=== PATIENT | female | born 1950 | race Caucasian/White ===

== ENCOUNTER 2017-10-29 09:07 | Outpatient (CLI) | payer MEDICARE, BC ==
[2017-10-29 10:11] LABS: Hemoglobin 13.7 g/dL (12.0-16.0); Mean Corpuscular Hemoglobin 30.3 pg (27.0-31.0); Mean Corpuscular Volume 94.8 fL (78.0-98.0); Mean Platelet Volume 7.6 fL (7.4-10.4); Platelet Count 232 thou/uL (130-400); RBC Distribution Width 12.4 % (11.5-14.5); Red Blood Cell (RBC) Count 4.52 mill/uL (4.20-5.40); White Blood Cell (WBC) Count 9.3 thou/uL (4.8-10.8)
[2017-10-29 10:18] LABS: INR-International Normal Ratio 0.9; Prothrombin Time 12.4 SEC (12.0-14.7)
[2017-10-29 10:32] LABS: Anion Gap 13 mmol/L (10-20); BUN (Urea Nitrogen) 26 mg/dL (9.8-20.1); Calc. Creatinine Clearance 0 mL/min (70-130); Calcium 9.3 mg/dL (7.8-10.44); Carbon Dioxide 26 mmol/L (23-31); Chloride 106 mmol/L (98-107); Estimated GFR-MDRD Greater than 90; Glucose 90 mg/dL (80-115); Sodium 141 mmol/L (136-145)
[2017-10-29 10:34] LABS: Bilirubin Negative (Negative); Blood, Urine Negative (Negative); Clarity CLEAR (Clear); Glucose, Urine (Dipstick) Negative (Negative); Leukocyte Negative (Negative); Nitrite Negative (Negative); Protein, Urine (Dipstick) Negative (Neg-Trace); Specific Gravity, Urine 1.024 (1.002-1.036); Urobilinogen 0.2 mg/dL (0.2-1.0); pH, Urine 5.5 (5.0-9.0)
[2017-10-29 10:45] LABS: Bacteria/HPF None Seen HPF (None Seen); Hyaline Casts/LPF 0-3 HYALINE CAST LPF (0-3 Hyaline); Pathc Cast-AUWi Flag 0.72 (0-2.49)
--- NOTE | 2017-11-01 17:36 | EKG ---
Test Reason : Blood Pressure : / mmHG Vent. Rate : 069 BPM Atrial Rate : 069 BPM P-R Int : 156 ms QRS Dur : 080 ms QT Int : 382 ms P-R-T Axes : 019 015 014 degrees QTc Int : 409 ms Normal sinus rhythm Low voltage QRS Inferior infarct , age undetermined Abnormal ECG When compared with ECG of 01-MAY-1999 08:24, Inferior infarct is now Present Confirmed by JUAN JARVIS (2) on 11/01/2017 5:35:47 PM Referred By: DEJAN Confirmed By:JUAN JARVIS
== END 2017-10-29 09:08 | disposition home or self-care (01) ==
LOC: LABBT 09:07
PROVIDERS: ATTEND Orthopaedic Surgery
DX: Z01.818 Encounter for other preprocedural examination (principal)
CPT/HCPCS: 80048; 81001; 85027; 85610; 87081; 87086; 93005; 93010

== ENCOUNTER 2017-11-04 15:22 | Outpatient (CLI) | payer MEDICARE, BC | END 2017-11-04 15:23 | disposition home or self-care (01) | LOC: LABBT 15:22 | PROVIDERS: ATTEND Orthopaedic Surgery | DX: Z01.812 Encounter for preprocedural laboratory examination (principal); M17.11 Unilateral primary osteoarthritis, right knee | CPT/HCPCS: 86850; 86900; 86901 ==

== ENCOUNTER 2017-11-09 05:50 | Day surgery (SDC) | payer MEDICARE, BC ==
[2017-10-29 09:36] VITALS: BMI 34.2
--- NOTE | 2017-11-08 20:44 | HP ---
DATE OF ADMISSION: 11/09/2017 HISTORY OF PRESENT ILLNESS: The patient is a 66-year-old female with a long history of progressive d egenerative arthritis of both knees, right symptomatic more than left. She has had a recent injury. She has had progressive symptoms despite rest, restriction of activities, lifestyle adjustments, ant i-inflammatory medications, and previous cortisone injections. Pain is now interfering with day-to-d ay activities including walking, getting dressed, and sleeping. 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 This is not causing any significant clinical problems. She has had cervical cancer, and she has had a previous hysterectomy. She has also had neck surgery. She has a history of high chol esterol, anxiety, and Rivas's palsy. CURRENT MEDICATIONS: Include fish oil, multivitamins, naproxen, simvastatin, bupropion, estradiol, c alcium, tizanidine. ALLERGIES: She is allergic to PENICILLIN, which causes a rash. FAMILY HISTORY/SOCIAL HISTORY/REVIEW OF SYSTEMS: Otherwise unremarkable. PHYSICAL EXAMINATION: GENERAL: Reveals a healthy female. HEENT: Unremarkable. NECK: Supple. CHEST: Clear. HEART: Regular rate and rhythm. ABDOMEN: Soft, nontender. PELVIC/RECTAL/BREAST: Exams are deferred. EXTREMITIES: Pertinent findings relate to her knees. There is a slight puffiness bilaterally and mi ld valgus deformity bilaterally. There is tenderness and crepitus over the medial and lateral joint lines, right greater than left. Range of motion is 3-125 degrees bilaterally. There is no definite instability. There is crepitus with range of motion. There is a right antalgic gait. Neurovascular exam is intact with palpable distal pulses. There is no pain with range of motion of either hip. LABORATORY AND X-RAY FINDINGS: X-rays of both knees reveal bone on bone collapse laterally with prog ression from previous x-rays. There are also changes of osteopoikilosis. IMPRESSION: 1. Degenerative arthritis of both knees, right symptomatic more than left. 2. History of high cholesterol. 3. History of osteopoikilosis. PLAN: Right total knee replacement. She may ultimately require staged left total knee replacement. The nature of the surgery, length of recovery, and potential complications such as infection, loss o f motion, incomplete relief, thromboembolic phenomenon, neurovascular injury, possible transfusion, a nd need for revision have been discussed in detail.
[2017-11-09] MEDS ORDERED: Vancomycin HCl 1.5 GM in Sodium Chloride 0.9% 250 ML 300 ML IVPB SCH ×2 (06:15→18:00)
[2017-11-09] MEDS ORDERED: Lidocaine 1% (PF) 30 ML VIAL ONE (06:19)
[2017-11-09] MEDS ORDERED: Fentanyl 100 MCG/2 ML VIAL ONE ×2 (06:19→09:40)
[2017-11-09] MEDS ORDERED: Midazolam HCl 2 mg/2 ml Vial ONE (06:19)
[2017-11-09] MEDS ORDERED: Levofloxacin 500 mg/D5W 100 ml Premix Bag ONE (06:26)
[2017-11-09] MEDS ORDERED: Sodium Chloride 0.9% 0 ML ONE (06:26)
[2017-11-09] MEDS ORDERED: Lidocaine 1% w/Epinephrine 1:100K 30 ML VIAL ONE (06:36)
[2017-11-09] MEDS ORDERED: Bupivacaine/Epinephrine 0.25% 30 ML VIAL ONE (06:36)
[2017-11-09] MEDS ORDERED: Promethazine HCl 25 MG/ML VIAL IM PRN ×2 (07:05→08:09)
[2017-11-09] MEDS ORDERED: Ondansetron HCl/PF 4 MG/2 ML Vial IVP PRN ×3 (07:05→10:10)
[2017-11-09] MEDS ORDERED: Zolpidem Tartrate 5 MG TAB PO PRN ×2 (07:05→10:10)
[2017-11-09] MEDS ORDERED: Ropivacaine HCl/PF 250 ML in Premix Bag 1 BAG NERVE BLCK SCH (07:05)
[2017-11-09] MEDS ORDERED: traMADol HCl 50 MG TAB PO PRN ×3 (07:05→10:10)
[2017-11-09] MEDS ORDERED: Ketorolac Tromethamine 30 MG/ML VIAL IVP PRN (07:05)
[2017-11-09] MEDS ORDERED: Fentanyl 100 MCG/2 ML VIAL IV PRN (07:07)
[2017-11-09] MEDS ORDERED: Promethazine HCl 25 MG/ML VIAL SLOW IVP PRN ×2 (08:09→10:10)
[2017-11-09] MEDS ORDERED: Tranexamic Acid 1,000 MG in Sodium Chloride 0.9% 100 ML IVPB SCH ×2 (09:15→09:49)
[2017-11-09] MEDS ORDERED: HYDROcodone/Acetaminophen 10/325 mg Tablet PO PRN ×2 (10:10)
[2017-11-09] MEDS ORDERED: Acetaminophen 325 MG TAB PO PRN (10:10)
[2017-11-09] MEDS ORDERED: diphenhydrAMINE 25 MG CAP PO PRN (10:10)
[2017-11-09] MEDS ORDERED: tiZANidine HCl 4 MG TAB PO PRN (10:10)
[2017-11-09] MEDS ORDERED: Fentanyl 100 MCG/2 ML VIAL SLOW IVP PRN ×2 (10:10)
--- NOTE | 2017-11-09 10:25 | RAD ---
RIGHT KNEE 2 VIEWS: HISTORY: Status post arthroplasty. COMPARISON: None. FINDINGS: Findings compatible with right knee arthroplasty. No perihardware lucency. Expected postoperative c hanges of the soft tissues. IMPRESSION: Uncomplicated right knee arthroplasty. POS: [facility]
--- NOTE | 2017-11-09 10:56 | OP ---
DATE OF PROCEDURE: 11/09/2017 SURGEON: Jaziel Akers M.D. LOFTER: JANINE Reed ANESTHESIA: General plus adductor canal and sciatic nerve blocks. PREOPERATIVE DIAGNOSIS: Degenerative arthritis, right knee. POSTOPERATIVE DIAGNOSIS: Degenerative arthritis, right knee. PROCEDURE: Right total knee replacement with computer-assisted navigation with cemented Teresa Tria thlon components (#4 femoral component, #4 universal tibial baseplate with 9 mm CS plastic insert, an d all plastic A29 patellar component). NARRATIVE REPORT: After satisfactory anesthesia was induced in supine position, sequential compressi on device was placed on the non-operated leg throughout the procedure. The right leg was then preppe d and draped in routine manner. The right leg was elevated, exsanguinated the Esmarch bandage, and t he tourniquet inflated to 300 mmHg. A gently curved medial parapatellar incision was made and avis d down to subcutaneous tissues, and bleeding points controlled with Bovie cautery. Medial parapatell ar arthrotomy was performed, patella dislocated laterally and portions of the fat pad were excised fo r exposure. There was moderate diffuse synovitis and diffuse tricompartmental degenerative arthritis with large areas of exposed bone, especially laterally. Meniscal remnants and osteophytes were patti andre. Using the [employer] pinless navigation system and appropriate guides, the distal femoral and prox imal tibial articular surfaces were excised with an oscillating saw to accept the trial components. The popliteus tendon was resected and a portion of the lateral collateral ligament recessed because o f the valgus deformity. It was felt that #4 femoral component, #4 tibial baseplate with 9 mm CS plas tic insert gave appropriate size, fit, stability, and correction of the preoperative deformity. The patellar articular surface was excised to accept an all plastic A29 patellar component. There was go od range of motion and good patellar tracking. The trial components were removed. The knee was copi ously irrigated with pulsatile lavage and bony surfaces thoroughly cleaned and dried. The permanent component was then cemented in a single stage using 1 package of cement premixed with 1 gram of tobra mycin powder. Excess cement was removed. There was again good fit and stability of the components. The knee was then copiously irrigated. The skin and infiltrated with 30 mL of 0.25% Marcaine with e pinephrine. The medial retinaculum and quadriceps mechanism was closed with interrupted #2 Vicryl an d a running #2 Quill. Subcutaneous tissues were closed with running 0 Quill suture and the skin clos ed with running subcuticular 3-0 Monoderm and SurgiSeal skin adhesive. Sterile bulky compressive nicky ssing was applied. The tourniquet deflated after 74 minutes. The foot promptly pinked up and sequen tial compression device was placed on the operated leg. She was awakened, taken to the recovery room in stable condition. There were no apparent intraoperative complications. Estimated blood loss was less than 100 mL.
[2017-11-09] MEDS ORDERED: ESTRADIOL VAG SCH (11:30)
[2017-11-09] MEDS ORDERED: Bupivacaine 0.25% HCL 30 ML VIAL ONE (11:44)
[2017-11-09] MEDS ORDERED: Ropivacaine 0.5% HCl/PF (150 MG/30 ML VIAL) ONE (11:44)
[2017-11-09] MEDS ORDERED: Ondansetron HCl/PF 4 MG/2 ML Vial ONE (12:22)
[2017-11-09] MEDS ORDERED: ePHEDrine/0.9% NaCl/PF SYRINGE 50 mg/10 ml ONE (12:22)
[2017-11-09] MEDS ORDERED: Lidocaine 1% PF 5 ML VIAL ONE (12:22)
[2017-11-09] MEDS ORDERED: Ketorolac Tromethamine 30 MG/ML VIAL ONE (12:22)
[2017-11-09] MEDS ORDERED: PROPOFOL 200 MG/20 ML VIAL ONE (12:22)
[2017-11-09] MEDS: Sodium Chloride 0.9% 1,000 ML IV SCH ×2 (13:19→20:08)
[2017-11-09] MEDS: Ketorolac Tromethamine 30 MG/ML VIAL IM SCH ×2 (14:17→22:58)
--- NOTE | 2017-11-09 17:55 | PDOC.PN ---
- Subjective Encounter Start Date: 11/09/17 Encounter Start Time: 14:00 Pt seen for management of medical comorbidities including dyslipidemia. Denies chest pain, shortness of breath, fevers or chills. No nausea or vomiting. - Objective MAR Reviewed: Yes Vital Signs & Weight: Vital Signs (12 hours) Temp Pulse Resp BP Pulse Ox 11/09/17 10:50 97.5 F L 77 18 132/63 94 L Weight Weight 187 lb Additional Labs: Labs reviewed by me Phys Exam - Physical Examination Obese HEENT: moist MMs Neck: supple Respiratory: clear to auscultation bilateral Cardiovascular: RRR Gastrointestinal: soft s/p R knee surgery Neurological: moves all 4 limbs Psychiatric: normal affect Dx/Plan (1) Dyslipidemia Code(s): E78.5 - HYPERLIPIDEMIA, UNSPECIFIED Status: Chronic Comment: continue statin (2) Anxiety Code(s): F41.9 - ANXIETY DISORDER, UNSPECIFIED Status: Chronic Comment: continue bupropion and venlafaxine (3) Arthritis Code(s): M19.90 - UNSPECIFIED OSTEOARTHRITIS, UNSPECIFIED SITE Status: Chronic Comment: s/p knee surgery - Plan PT/OT * . s/p R knee surgery. DVT prophylaxis and pain management per primary service. Add PRN IV hydralazine for blood pressure spikes. Review of Systems - Review of Systems Respiratory: negative: Cough, Shortness of Breath, SOB with Excertion, Pleuritic Pain, Wheezing Cardiovascular: other. negative: chest pain, palpitations, orthopnea, paroxysmal nocturnal dyspnea, edema, light headedness - Medications/Allergies Allergies/Adverse Reactions: Allergies Allergy/AdvReac Type Severity Reaction Status Date / Time Penicillins Allergy Rash Verified 10/29/17 09:38 Medications: Current Medications Acetaminophen (Tylenol) 650 mg PO Q4H PRN PRN Reason: GREY/ T > 101F; Mild Pain (1-3) Hydrocodone Bitart/Acetaminophen ([place] 10/325) 1 tab PO Q4H PRN PRN Reason: Pain (1-3) Hydrocodone Bitart/Acetaminophen ([place] 10/325) 2 tab PO Q4H PRN PRN Reason: PAIN (4-6) Aspirin (Ecotrin) 81 mg PO BID [facility] Atorvastatin Calcium (Lipitor) 10 mg PO HS [facility] Bupropion HCl (Wellbutrin Xl) 150 mg PO QAM [facility] Cholecalciferol (Vitamin D3) 1,000 units PO BID [facility] Diphenhydramine HCl (Benadryl) 25 mg PO Q6H PRN PRN Reason: Itching Fentanyl (Sublimaze) 50 mcg IV Q1H PRN PRN Reason: BREAKTHRU PAIN Ferrous Gluconate (Fergon) 324 mg PO BID [facility] Fish Oil (Fish Oil) 1,000 mg PO BID [facility] Ropivacaine 250 ml/ Device 250 mls @ 10 mls/hr NERVE BLCK INF [facility] Tranexamic Acid 1,000 mg/ (Sodium Chloride) 110 mls @ 200 mls/hr IVPB ONE [facility] Stop: 11/10/17 14:00 Levofloxacin 500 mg/ Device 100 mls @ 100 mls/hr IVPB 0700 [facility] Stop: 11/10/17 07:59 Sodium Chloride (Normal Saline 0.9%) 1,000 mls @ 100 mls/hr IV .Q10H [facility] Last Admin: 11/09/17 13:19 Dose: Not Given Vancomycin HCl 1.5 gm/ Sodium (Chloride) 300 mls @ 200 mls/hr IVPB 1800 [facility] Stop: 11/09/17 19:29 Iron/Minerals/Multivitamins (Theragran M) 1 tab PO DAILY [facility] Ketorolac Tromethamine (Toradol) 15 mg IM Q8HR [facility] Stop: 11/11/17 14:01 Last Admin: 11/09/17 14:17 Dose: 15 mg Ondansetron HCl (Zofran) 4 mg IVP Q6H PRN PRN Reason: Nausea/Vomiting Ondansetron HCl (Zofran) 4 mg IVP Q6H PRN PRN Reason: Nausea/Vomiting Estradiol [Yuvafem] (2 Tab) 0 each VAG .2XWEEKLY [facility] Promethazine HCl (Phenergan) 12.5 mg IM Q4H PRN PRN Reason: Nausea Promethazine HCl (Phenergan) 12.5 mg SLOW IVP Q4H PRN PRN Reason: Nausea/Vomiting Senna/Docusate Sodium (Senokot S) 2 tab PO BID [facility] Sodium Chloride (Flush - Normal Saline) 10 ml IVF PRN PRN PRN Reason: Saline Flush Tizanidine HCl (Zanaflex) 4 mg PO DAILYPRN PRN PRN Reason: MUSCLE PAIN Last Admin: 11/09/17 15:32 Dose: 4 mg Tramadol HCl (Ultram) 50 mg PO Q6H PRN PRN Reason: Mild Pain (1-3) Last Admin: 11/09/17 15:32 Dose: 50 mg Tramadol HCl (Ultram) 100 mg PO Q6H PRN PRN Reason: Moderate Pain 4-6 Venlafaxine HCl (Effexor Xr) 225 mg PO QAM [facility] Zolpidem Tartrate (Ambien) 5 mg PO HSPRN PRN PRN Reason: Insomnia
[2017-11-09] MEDS ORDERED: hydrALAZINE 20 MG/ML VIAL SLOW IVP PRN (17:58)
[2017-11-09] MEDS: Fish Oil 1,000 MG CAP PO SCH (20:09)
[2017-11-09] MEDS: Atorvastatin Calcium 10 MG TAB PO SCH (20:09)
[2017-11-09] MEDS: Aspirin 81 mg Enteric Coated Tablet PO SCH (20:10)
[2017-11-09] MEDS: HYDROcodone/Acetaminophen 10/325 mg Tablet PO PRN (20:10)
[2017-11-10] MEDS: HYDROcodone/Acetaminophen 10/325 mg Tablet PO PRN ×4 (03:10→18:55)
[2017-11-10 05:37] LABS: Hemoglobin 11.5 g/dL (12.0-16.0); Mean Corpuscular HGB CONC 32.4 g/dL (32.0-36.0); Mean Corpuscular Hemoglobin 30.9 pg (27.0-31.0); Mean Corpuscular Volume 95.3 fL (78.0-98.0); Mean Platelet Volume 7.2 fL (7.4-10.4); Platelet Count 219 thou/uL (130-400); RBC Distribution Width 12.4 % (11.5-14.5); Red Blood Cell (RBC) Count 3.72 mill/uL (4.20-5.40)
[2017-11-10] MEDS: Ketorolac Tromethamine 30 MG/ML VIAL IM SCH ×3 (06:38→21:52)
[2017-11-10] MEDS: Sodium Chloride 0.9% 1,000 ML IV SCH ×2 (07:00→17:27)
[2017-11-10] MEDS: Fish Oil 1,000 MG CAP PO SCH ×2 (09:09→20:06)
[2017-11-10] MEDS: Venlafaxine HCl XR 75 MG CAP PO SCH (09:09)
[2017-11-10] MEDS: Multivitamin W/ Minerals 1 TAB PO SCH (09:14)
[2017-11-10] MEDS: Ferrous Gluconate 324 MG TAB PO SCH ×2 (09:14→20:00)
[2017-11-10] MEDS: Aspirin 81 mg Enteric Coated Tablet PO SCH ×2 (09:14→20:00)
[2017-11-10] MEDS: Senokot S 8.6-50 MG TAB PO SCH ×2 (09:14→20:00)
[2017-11-10] MEDS: Bupropion 150 MG XL TAB PO SCH (09:15)
--- NOTE | 2017-11-10 14:51 | PDOC.PN ---
- Subjective Encounter Start Date: 11/10/17 Encounter Start Time: 10:00 Pt seen for followup re: dyslipidemia. No complaints today. Slept well last night. - Objective MAR Reviewed: Yes Vital Signs & Weight: Vital Signs (12 hours) Temp Pulse Resp BP Pulse Ox 11/10/17 11:48 98.4 F 75 20 118/76 94 L 11/10/17 08:00 98.5 F 80 18 93/59 L 92 L 11/10/17 07:31 96 11/10/17 04:00 98.6 F 89 18 97/61 96 Weight Admit Weight 187 lb Weight 187 lb I&O: 11/09/17 11/10/17 11/11/17 06:59 06:59 06:59 Intake Total 2380 Output Total 1800 Balance 580 Result Diagrams: 11/10/17 05:03 Additional Labs: Labs reviewed by me Phys Exam - Physical Examination Obesity HEENT: moist MMs Neck: supple Respiratory: clear to auscultation bilateral Cardiovascular: RRR Gastrointestinal: soft s/p right knee surgery Psychiatric: normal affect Dx/Plan (1) Dyslipidemia Code(s): E78.5 - HYPERLIPIDEMIA, UNSPECIFIED Status: Chronic Comment: on statin (2) Anxiety Code(s): F41.9 - ANXIETY DISORDER, UNSPECIFIED Status: Chronic Comment: on bupropion and venlafaxine (3) Arthritis Code(s): M19.90 - UNSPECIFIED OSTEOARTHRITIS, UNSPECIFIED SITE Status: Chronic Comment: s/p right knee surgery - Plan * . Review of Systems - Review of Systems Respiratory: Dry. negative: Cough, Shortness of Breath, SOB with Excertion, Pleuritic Pain, Wheezing Cardiovascular: negative: chest pain, palpitations, orthopnea, paroxysmal nocturnal dyspnea, edema, light headedness - Medications/Allergies Allergies/Adverse Reactions: Allergies Allergy/AdvReac Type Severity Reaction Status Date / Time Penicillins Allergy Rash Verified 10/29/17 09:38 Medications: Current Medications Acetaminophen (Tylenol) 650 mg PO Q4H PRN PRN Reason: GREY/ T > 101F; Mild Pain (1-3) Hydrocodone Bitart/Acetaminophen ([place] 10/325) 1 tab PO Q4H PRN PRN Reason: Pain (1-3) Hydrocodone Bitart/Acetaminophen ([place] 10/325) 2 tab PO Q4H PRN PRN Reason: PAIN (4-6) Last Admin: 11/10/17 13:12 Dose: 2 tab Aspirin (Ecotrin) 81 mg PO BID [facility] Last Admin: 11/10/17 09:14 Dose: 81 mg Atorvastatin Calcium (Lipitor) 10 mg PO HS [facility] Last Admin: 11/09/17 20:09 Dose: 10 mg Bupropion HCl (Wellbutrin Xl) 150 mg PO QAM [facility] Last Admin: 11/10/17 09:15 Dose: 150 mg Cholecalciferol (Vitamin D3) 1,000 units PO BID [facility] Last Admin: 11/10/17 09:15 Dose: 1,000 units Diphenhydramine HCl (Benadryl) 25 mg PO Q6H PRN PRN Reason: Itching Fentanyl (Sublimaze) 50 mcg IV Q1H PRN PRN Reason: BREAKTHRU PAIN Ferrous Gluconate (Fergon) 324 mg PO BID [facility] Last Admin: 11/10/17 09:14 Dose: 324 mg Fish Oil (Fish Oil) 1,000 mg PO BID [facility] Last Admin: 11/10/17 09:09 Dose: 1,000 mg Hydralazine HCl (Apresoline) 10 mg SLOW IVP Q6H PRN PRN Reason: SBP Greater Than 170 Ropivacaine 250 ml/ Device 250 mls @ 10 mls/hr NERVE BLCK INF [facility] Last Admin: 11/10/17 10:17 Dose: 250 mls Sodium Chloride (Normal Saline 0.9%) 1,000 mls @ 100 mls/hr IV .Q10H [facility] Last Admin: 11/10/17 07:00 Dose: Not Given Iron/Minerals/Multivitamins (Theragran M) 1 tab PO DAILY [facility] Last Admin: 11/10/17 09:14 Dose: 1 tab Ketorolac Tromethamine (Toradol) 15 mg IM Q8HR [facility] Stop: 11/11/17 14:01 Last Admin: 11/10/17 14:24 Dose: 15 mg Ondansetron HCl (Zofran) 4 mg IVP Q6H PRN PRN Reason: Nausea/Vomiting Ondansetron HCl (Zofran) 4 mg IVP Q6H PRN PRN Reason: Nausea/Vomiting Estradiol [Yuvafem] (2 Tab) 0 each VAG .2XWEEKLY [facility] Promethazine HCl (Phenergan) 12.5 mg IM Q4H PRN PRN Reason: Nausea Promethazine HCl (Phenergan) 12.5 mg SLOW IVP Q4H PRN PRN Reason: Nausea/Vomiting Senna/Docusate Sodium (Senokot S) 2 tab PO BID [facility] Last Admin: 11/10/17 09:14 Dose: 2 tab Sodium Chloride (Flush - Normal Saline) 10 ml IVF PRN PRN PRN Reason: Saline Flush Last Admin: 11/10/17 14:27 Dose: 10 ml Tizanidine HCl (Zanaflex) 4 mg PO DAILYPRN PRN PRN Reason: MUSCLE PAIN Last Admin: 11/09/17 15:32 Dose: 4 mg Tramadol HCl (Ultram) 50 mg PO Q6H PRN PRN Reason: Mild Pain (1-3) Last Admin: 11/09/17 15:32 Dose: 50 mg Tramadol HCl (Ultram) 100 mg PO Q6H PRN PRN Reason: Moderate Pain 4-6 Venlafaxine HCl (Effexor Xr) 225 mg PO QAM [facility] Last Admin: 11/10/17 09:09 Dose: 225 mg Zolpidem Tartrate (Ambien) 5 mg PO HSPRN PRN PRN Reason: Insomnia
[2017-11-10] MEDS: Atorvastatin Calcium 10 MG TAB PO SCH (20:00)
[2017-11-11] MEDS: Sodium Chloride 0.9% 1,000 ML IV SCH (01:11)
[2017-11-11] MEDS: Ketorolac Tromethamine 30 MG/ML VIAL IM SCH (06:31)
[2017-11-11] MEDS: Aspirin 81 mg Enteric Coated Tablet PO SCH (08:38)
[2017-11-11] MEDS: Ferrous Gluconate 324 MG TAB PO SCH (08:38)
[2017-11-11] MEDS: Multivitamin W/ Minerals 1 TAB PO SCH (08:39)
[2017-11-11] MEDS: Venlafaxine HCl XR 75 MG CAP PO SCH (08:39)
[2017-11-11] MEDS: Bupropion 150 MG XL TAB PO SCH (08:40)
[2017-11-11] MEDS: Fish Oil 1,000 MG CAP PO SCH (08:40)
[2017-11-11] MEDS: Senokot S 8.6-50 MG TAB PO SCH (08:41)
[2017-11-11] MEDS: HYDROcodone/Acetaminophen 10/325 mg Tablet PO PRN ×2 (08:46→12:49)
[2017-11-11 11:16] VITALS: BP 115/71; TEMP 98.2
== END 2017-11-11 12:55 | disposition home or self-care (01) ==
LOC: SDC 05:50 → SJJU 07:04 → SDC 11-11 12:55
PROVIDERS: ATTEND Orthopaedic Surgery
PROC: 0SRC0J9 Replacement of Right Knee Joint with Synthetic Substitute, Cemented, Open Approach (ICD-10-PCS; principal; 2017-11-09)
PROC: 8E0YXBZ Computer Assisted Procedure of Lower Extremity (ICD-10-PCS; 2017-11-09)
DX: M17.0 Bilateral primary osteoarthritis of knee (principal); E78.00 Pure hypercholesterolemia, unspecified; F41.9 Anxiety disorder, unspecified; G51.0 Bell's palsy; Q78.8 Other specified osteochondrodysplasias; E78.5 Hyperlipidemia, unspecified; Z79.1 Long term (current) use of non-steroidal anti-inflammatories (NSAID); Z79.82 Long term (current) use of aspirin; Z79.899 Other long term (current) drug therapy; Z88.0 Allergy status to penicillin
CPT/HCPCS: 20985; 27447; 73560; 85027; 97116 ×2; 97139 ×3; 97150 ×2; 97530 ×3; 98960; C1713; C1776; G8978; G8979; 36415; J1885; J1956; J2001; J2250; J2405; J2704; J2795; J3010; J3370; J7050; S0020

== ENCOUNTER 2018-05-06 00:01 | Outpatient (CLI) | payer MEDICARE, BC ==
[2018-05-06 14:07] LABS: #Basophils 0.1 thou/uL (0.0-0.2); #Eosinphils 0.1 thou/uL (0.0-0.7); #Monocytes 0.7 thou/uL (0.11-0.59); #Neutrophils 5.2 thou/uL (1.40-6.50); %Basophils 0.6 % (0.0-1.0); %Eosinophils 1.6 % (0.0-10.0); %Lymphocytes 24.6 % (21.0-51.0); %Monocytes 8.8 % (0.0-10.0); %Neutrophils 64.3 % (42.0-75.0); Hemoglobin 14.1 g/dL (12.0-16.0); Mean Corpuscular HGB CONC 32.8 g/dL (32.0-36.0); Mean Corpuscular Hemoglobin 30.2 pg (27.0-31.0); Mean Platelet Volume 7.7 fL (7.4-10.4); Platelet Count 254 thou/uL (130-400); RBC Distribution Width 12.9 % (11.5-14.5); Red Blood Cell (RBC) Count 4.66 mill/uL (4.20-5.40); White Blood Cell (WBC) Count 8.2 thou/uL (4.8-10.8)
[2018-05-06 14:12] LABS: INR-International Normal Ratio 0.9; Prothrombin Time 12.4 SEC (12.0-14.7)
[2018-05-06 14:29] LABS: Anion Gap 12 mmol/L (10-20); BUN (Urea Nitrogen) 22 mg/dL (9.8-20.1); Calc. Creatinine Clearance 0 mL/min (70-130); Calcium 9.8 mg/dL (7.8-10.44); Carbon Dioxide 28 mmol/L (23-31); Chloride 102 mmol/L (98-107); Estimated GFR-MDRD Greater than 90; Glucose 80 mg/dL (80-115); Potassium 4.1 mmol/L (3.5-5.1); Sodium 138 mmol/L (136-145)
[2018-05-06 19:59] LABS: Bilirubin Negative (Negative); Blood, Urine Negative (Negative); Glucose, Urine (Dipstick) Negative (Negative); Leukocyte Negative (Negative); Nitrite Negative (Negative); Protein, Urine (Dipstick) Negative (Neg-Trace); Urobilinogen 0.2 mg/dL (0.2-1.0)
[2018-05-06 20:03] LABS: Clarity CLEAR (Clear); Specific Gravity, Urine 1.004 (1.002-1.036)
[2018-05-06 20:04] LABS: Bacteria/HPF None Seen HPF (None Seen); Hyaline Casts/LPF NONE SEEN LPF (0-3 Hyaline); RBC/HPF None Seen HPF (0-3); Squamous Epithelial 0-3 HPF (0-3); WBC/HPF None Seen HPF (0-3)
== END 2018-05-06 00:02 | disposition home or self-care (01) ==
LOC: LABBT 00:01
PROVIDERS: ATTEND Orthopaedic Surgery
DX: Z01.818 Encounter for other preprocedural examination (principal); M17.12 Unilateral primary osteoarthritis, left knee
CPT/HCPCS: 80048; 81001; 85025; 85610; 86850; 86900; 86901; 87081; 87086; 93005; 93010

== ENCOUNTER 2018-05-10 07:15 | Inpatient (IN) | payer MEDICARE, BC ==
[2018-05-06 12:50] VITALS: BMI 34.7
--- NOTE | 2018-05-06 14:37 | HP ---
HISTORY OF PRESENT ILLNESS: The patient is a 67-year-old female with a long history of progressive degenerative arthritis of both knees, unresponsive to conservative treatment. She underwent right total knee replacement in November of 2017 with good results, but continues to have problems with her left knee, which persisted despite rest, restriction of activities, anti-inflammatory medications and cortisone injections. The pain is now interfering with day-to-day activities. PAST HISTORY: The patient is otherwise quite healthy. She has a history of osteopoikilosis, cervical cancer in remission, and previous hysterectomy. She has a history of Rivas's palsy, high cholesterol, and depression and anxiety. CURRENT MEDICATIONS: Include fish oil, naproxen, simvastatin, bupropion, estradiol, venlafaxine, multivitamins, calcium. ALLERGIES: SHE IS ALLERGIC TO PENICILLIN. FAMILY HISTORY: Otherwise unremarkable. SOCIAL HISTORY: Otherwise unremarkable. REVIEW OF SYSTEMS: Otherwise unremarkable. PHYSICAL EXAMINATION: GENERAL: Reveals a healthy female. HEENT: Unremarkable. NECK: Supple. CHEST: Clear. HEART: Regular rate and rhythm. ABDOMEN: Soft and nontender. PELVIC, RECTAL AND BREASTS: Deferred. EXTREMITIES: Pertinent findings related to the left knee. There is slight valgus. There is no effusion. There is puffiness. Range of motion is 2 to 125 degrees. There is tenderness and crepitus over the lateral joint line. There is no instability. NEUROVASCULAR: Intact. There are palpable distal pulses. DIAGNOSTIC STUDIES: X-rays of the left knee reveal [id number] collapse laterally and changes consistent with osteopoikilosis. X-rays of the right knee reveal good alignment of total knee components. IMPRESSION: 1. Degenerative arthritis, left knee. 2. Osteopoikilosis. 3. Status post right total knee replacement. PLAN: Left total knee replacement. The nature of surgery, length, recovery, and potential complications such as infection, loss of motion, incomplete relief, delayed wound healing, neurovascular injury, thromboembolic phenomenon, possible transfusion and need for revision have been discussed in detail. Job ID: [id number]
[2018-05-10] MEDS ORDERED: Vancomycin HCl 1.5 GM in Sodium Chloride 0.9% 250 ML 300 ML IVPB SCH ×2 (08:00→21:00)
[2018-05-10] MEDS ORDERED: Sodium Chloride 0.9% 100 ML ONE (08:02)
[2018-05-10] MEDS ORDERED: Tranexamic Acid 1,000 MG/10 ML VIAL ONE ×3 (08:02→11:55)
[2018-05-10] MEDS ORDERED: Levofloxacin 500 mg/D5W 100 ml Premix Bag ONE (08:02)
[2018-05-10] MEDS ORDERED: Fentanyl 100 MCG/2 ML VIAL ONE ×5 (08:16→13:17)
[2018-05-10] MEDS ORDERED: Midazolam HCl 2 mg/2 ml Vial ONE (08:16)
[2018-05-10] MEDS ORDERED: Bupivacaine/Epinephrine 0.25% 30 ML VIAL ONE (08:39)
[2018-05-10] MEDS ORDERED: Fentanyl 100 MCG/2 ML VIAL SLOW IVP PRN ×3 (09:21→13:44)
[2018-05-10] MEDS ORDERED: Ondansetron PF 4 MG/2 ML Vial IVP PRN ×2 (09:21→13:44)
[2018-05-10] MEDS ORDERED: Zolpidem Tartrate 5 MG TAB PO PRN ×2 (09:21→13:44)
[2018-05-10] MEDS ORDERED: Ropivacaine HCl/PF 250 ML in Premix Bag 1 BAG NERVE BLCK SCH (09:21)
[2018-05-10] MEDS ORDERED: Promethazine HCl 25 MG/ML VIAL IM PRN ×2 (09:21→11:40)
[2018-05-10] MEDS ORDERED: traMADol HCl 50 MG TAB PO PRN ×3 (09:21→13:44)
[2018-05-10] MEDS ORDERED: HYDROcodone/Acetaminophen 10/325 mg Tablet PO PRN ×3 (09:21→13:44)
[2018-05-10] MEDS ORDERED: Ondansetron HCl/PF 4 MG/2 ML Vial IVP PRN (11:40)
[2018-05-10] MEDS ORDERED: Promethazine HCl 25 MG/ML VIAL SLOW IVP PRN ×2 (11:40→13:44)
[2018-05-10] MEDS ORDERED: Tranexamic Acid 1,000 MG in Sodium Chloride 0.9% 100 ML IVPB SCH ×2 (12:30→13:44)
--- NOTE | 2018-05-10 12:58 | OP ---
DATE OF PROCEDURE: 05/10/2018 CHIP LOFT WORKER: Gurjit Mora PA-C ANESTHESIA: General plus adductor canal and sciatic nerve blocks. PREOPERATIVE DIAGNOSIS: Degenerative arthritis, left knee. POSTOPERATIVE DIAGNOSIS: Degenerative arthritis, left knee. PROCEDURE PERFORMED: Left total knee replacement with computer-assisted navigation with cemented Teresa Triathlon components (#4 femoral component, #4 primary tibial base plate with 9 mm CS plastic insert, and all plastic A29 patellar component). DESCRIPTION OF PROCEDURE: After satisfactory anesthesia was induced in supine position, sequential compression devices were placed on the nonoperative leg throughout the procedure. The left leg was then prepped and draped in routine sterile fashion. The left leg was elevated and exsanguinated with an Esmarch bandage and the tourniquet inflated to 300 mmHg. A gently curved medial parapatellar incision was made and carried down through the subcutaneous tissues. Bleeding points were controlled with Bovie cautery. Medial parapatellar arthrotomy was performed of the patella, this was carried laterally and portions of the fat pad were excised for exposure. There was marked degenerative arthritis of the knee of all compartments, especially laterally where there was exposed bone. There was hyperemic synovitis and her bone was quite vascular possibly related to her osteopoikilosis. There were moderate calcifications within the bone and it did appear to be more vascular and darker than "normal." Meniscal remnants and osteophytes were removed. Using the [employer] navigation system and the appropriate guides, the distal femoral and proximal tibial articular surfaces were excised with oscillating saw to accept the trial components. It was felt that #4 femoral component and #4 primary tibial base plate with 9 mm CS plastic insert gave appropriate size, fit, and stability. The popliteus tendon was released and portions of the IT band were pie crusted because of the tightness laterally in the pre-existing valgus deformity. The patellar articular surface was excised to accept all plastic A29 patellar component. There was good patellar tracking and satisfactory motion. The trial components were removed. The knee was copiously irrigated with pulsatile lavage. The bony surfaces thoroughly cleaned and dried. The permanent components were then cemented in a single stage using one package of cement premixed with 1 g of tobramycin powder. Excess cement was removed. There was again good fit and stability of the components. The knee again was copiously irrigated. 1 g of TXA was then placed approximately 100 mL of saline. Half of this mixture was instilled into the knee joint. This allowed to sit there. The medial retinaculum and quadriceps mechanism were closed with interrupted #2 Vicryl and a running #2 Quill. After complete closure of the capsule, the remaining TXA solution was instilled into the knee joint with a needle and syringe. The subcutaneous tissues were then closed with a running 0 Quill suture and the skin closed with a running subcuticular 3-0 Monoderm and SurgiSeal skin adhesive. Sterile bulky compressive dressing was applied and the tourniquet deflated after 78 minutes. The foot promptly pinked up and sequential compression device was applied to her operated leg. She was awakened and taken to recovery room in stable condition. There were no apparent intraoperative complications. The estimated blood loss was less than 100 mL. Job ID: [id number]
--- NOTE | 2018-05-10 13:36 | RAD ---
LEFT KNEE 2 VIEWS: Date: 05/10/18 HISTORY: Total knee replacement postop. FINDINGS/IMPRESSION: There are recent postop changes of total knee arthroplasty in good position and alignment. Soft tissu e air is present. POS: [facility]
[2018-05-10] MEDS ORDERED: Acetaminophen 325 MG TAB PO PRN (13:44)
[2018-05-10] MEDS ORDERED: diphenhydrAMINE 25 MG CAP PO PRN (13:44)
[2018-05-10] MEDS ORDERED: tiZANidine HCl 4 MG TAB PO PRN (13:44)
[2018-05-10] MEDS ORDERED: ESTRADIOL VAG SCH (13:44)
[2018-05-10] MEDS: HYDROcodone/Acetaminophen 10/325 mg Tablet PO PRN ×3 (15:00→23:09)
[2018-05-10] MEDS: Sodium Chloride 0.9% 1,000 ML IV SCH ×2 (15:04→19:06)
[2018-05-10] MEDS ORDERED: Ropivacaine 0.5% HCl/PF (150 MG/30 ML VIAL) ONE (15:05)
[2018-05-10] MEDS ORDERED: Ropivacaine 0.2% HCl/PF (40 MG/20 ML VIAL) ONE (15:05)
[2018-05-10] MEDS ORDERED: Dexamethasone 20 MG/5 ML VIAL ONE (15:28)
[2018-05-10] MEDS ORDERED: Ondansetron PF 4 MG/2 ML Vial ONE (15:28)
[2018-05-10] MEDS ORDERED: PROPOFOL 200 MG/20 ML VIAL ONE (15:28)
[2018-05-10] MEDS: Ketorolac Tromethamine 30 MG/ML VIAL IVP SCH ×2 (18:56→23:08)
[2018-05-10] MEDS: Atorvastatin Calcium 10 MG TAB PO SCH (21:06)
[2018-05-10] MEDS: Aspirin 81 mg Enteric Coated Tablet PO SCH (21:06)
[2018-05-10] MEDS: Fish Oil 1,000 MG CAP PO SCH (21:06)
[2018-05-11] MEDS: HYDROcodone/Acetaminophen 10/325 mg Tablet PO PRN ×5 (03:34→20:04)
[2018-05-11] MEDS: Ketorolac Tromethamine 30 MG/ML VIAL IVP SCH ×3 (05:37→17:48)
[2018-05-11 06:22] LABS: Hemoglobin 11.6 g/dL (12.0-16.0); Mean Corpuscular HGB CONC 33.1 g/dL (32.0-36.0); Mean Corpuscular Volume 93.6 fL (78.0-98.0); Mean Platelet Volume 7.6 fL (7.4-10.4); Platelet Count 207 thou/uL (130-400); RBC Distribution Width 12.9 % (11.5-14.5); Red Blood Cell (RBC) Count 3.76 mill/uL (4.20-5.40); White Blood Cell (WBC) Count 9.5 thou/uL (4.8-10.8)
[2018-05-11] MEDS: Venlafaxine HCl XR 75 MG CAP PO SCH (07:54)
[2018-05-11] MEDS: Multivitamin W/ Minerals 1 TAB PO SCH (07:55)
[2018-05-11] MEDS: Senokot S 8.6-50 MG TAB PO SCH ×2 (07:55→20:03)
[2018-05-11] MEDS: Fish Oil 1,000 MG CAP PO SCH ×2 (07:55→20:03)
[2018-05-11] MEDS: Bupropion 150 MG XL TAB PO SCH (07:55)
[2018-05-11] MEDS: Aspirin 81 mg Enteric Coated Tablet PO SCH ×2 (07:56→20:02)
[2018-05-11] MEDS: Ferrous Gluconate 324 MG TAB PO SCH ×2 (07:56→20:02)
[2018-05-11] MEDS: Sodium Chloride 0.9% 1,000 ML IV SCH ×2 (09:14→19:43)
[2018-05-11] MEDS: Atorvastatin Calcium 10 MG TAB PO SCH (20:02)
--- NOTE | 2018-05-11 22:48 | PDOC.PN ---
- Subjective Encounter Start Date: 05/11/18 Encounter Start Time: 09:00 Patient seen and examined for med mngt. No CP/SOB/N/V. No new complaints. No overnight events - Objective MAR Reviewed: Yes Vital Signs & Weight: Vital Signs (12 hours) Temp Pulse Resp BP Pulse Ox 05/11/18 20:00 98.2 F 72 16 98/52 L 94 L 05/11/18 15:30 98.4 F 88 14 109/67 92 L 05/11/18 12:40 98.5 F 90 17 109/71 95 Weight Admit Weight 190 lb Weight 190 lb I&O: 05/10/18 05/11/18 05/12/18 06:59 06:59 06:59 Intake Total 3170.5 2440 Output Total 925 1150 Balance 2245.5 1290 Result Diagrams: 05/11/18 05:48 EKG Reviewed by me: Yes (SR) Phys Exam - Physical Examination Constitutional: NAD Respiratory: no wheezing, no rhonchi Cardiovascular: RRR, no rub Gastrointestinal: soft, non-tender, positive bowel sounds Musculoskeletal: no edema Dx/Plan - Plan DVT proph w/SCDs 1. HLD 2. Anxiety/Depression - mild - stable 3. CKD 2 4. Obesity BMI 34.8 5. PCN allergy 6. BILL on CPAP PLAN: Cont Statins Cont antidepressants On ASA for DVT prophylaxis Will follow. Thank you for this consultation. Full code. DPOA - Patient makes his own decisions with help of his family Review of Systems - Review of Systems Respiratory: negative: Cough, Dry, Shortness of Breath, Hemoptysis, SOB with Excertion, Pleuritic Pain, Sputum, Wheezing Cardiovascular: negative: chest pain, palpitations, orthopnea, paroxysmal nocturnal dyspnea, edema, light headedness, other Gastrointestinal: negative: Nausea, Vomiting, Abdominal Pain, Diarrhea, Constipation, Melena, Hematochezia, Other - Medications/Allergies Allergies/Adverse Reactions: Allergies Allergy/AdvReac Type Severity Reaction Status Date / Time Penicillins Allergy Rash Verified 05/06/18 12:47 Medications: Current Medications Acetaminophen (Tylenol) 650 mg PO Q4H PRN PRN Reason: Headache/Fever or Pain Hydrocodone Bitart/Acetaminophen ([place] 10/325) 1 tab PO Q4H PRN PRN Reason: Pain (1-3) Hydrocodone Bitart/Acetaminophen ([place] 10/325) 2 tab PO Q4H PRN PRN Reason: PAIN (4-6) Last Admin: 05/11/18 20:04 Dose: 2 tab Aspirin (Ecotrin) 81 mg PO BID [facility] Last Admin: 05/11/18 20:02 Dose: 81 mg Atorvastatin Calcium (Lipitor) 10 mg PO HS [facility] Last Admin: 05/11/18 20:02 Dose: 10 mg Bupropion HCl (Wellbutrin Xl) 150 mg PO QAM [facility] Last Admin: 05/11/18 07:55 Dose: 150 mg Cholecalciferol (Vitamin D3) 1,000 units PO BID [facility] Last Admin: 05/11/18 20:02 Dose: 1,000 units Diphenhydramine HCl (Benadryl) 25 mg PO Q6H PRN PRN Reason: Itching Fentanyl (Sublimaze) 50 mcg SLOW IVP Q1H PRN PRN Reason: breakthrough pain Ferrous Gluconate (Fergon) 324 mg PO BID [facility] Last Admin: 05/11/18 20:02 Dose: 324 mg Fish Oil (Fish Oil) 1,000 mg PO BID [facility] Last Admin: 05/11/18 20:03 Dose: 1,000 mg Vancomycin HCl 1.5 gm/ Sodium (Chloride) 300 mls @ 200 mls/hr IVPB [facility] Ropivacaine 250 ml/ Device 250 mls @ 10 mls/hr [facility] Last Admin: 05/11/18 13:01 Dose: 250 mls Sodium Chloride (Normal Saline 0.9%) 1,000 mls @ 100 mls/hr IV .Q10H [facility] Last Admin: 05/11/18 19:43 Dose: Not Given Iron/Minerals/Multivitamins (Theragran M) 1 tab PO DAILY [facility] Last Admin: 05/11/18 07:55 Dose: 1 tab Ketorolac Tromethamine (Toradol) 15 mg IVP Q6HR [facility] Stop: 05/15/18 18:01 Last Admin: 05/11/18 17:48 Dose: 15 mg Non-Formulary Medication (Estradiol [Yuvafem]) 2 tab [facility] Ondansetron HCl (Zofran) 4 mg IVP Q6H PRN PRN Reason: Nausea/Vomiting Ondansetron HCl (Zofran) 4 mg IVP Q6H PRN PRN Reason: Nausea/Vomiting Promethazine HCl (Phenergan) 12.5 mg IM Q4H PRN PRN Reason: Nausea Promethazine HCl (Phenergan) 12.5 mg SLOW IVP Q4H PRN PRN Reason: Nausea/Vomiting Senna/Docusate Sodium (Senokot S) 2 tab PO BID [facility] Last Admin: 05/11/18 20:03 Dose: 2 tab Sodium Chloride (Flush - Normal Saline) 10 ml IVF PRN PRN PRN Reason: Saline Flush Last Admin: 05/11/18 17:50 Dose: 10 ml Tizanidine HCl (Zanaflex) 4 mg PO DAILYPRN PRN PRN Reason: Pain Tramadol HCl (Ultram) 50 mg PO Q6H PRN PRN Reason: Mild Pain (1-3) Tramadol HCl (Ultram) 100 mg PO Q6H PRN PRN Reason: Moderate Pain 4-6 Last Admin: 05/11/18 11:01 Dose: 100 mg Venlafaxine HCl (Effexor Xr) [facility] [place] Last Admin: 05/11/18 07:54 Dose: 225 mg Zolpidem Tartrate (Ambien) 5 mg PO HSPRN PRN PRN Reason: Insomnia
[2018-05-12] MEDS: Ketorolac Tromethamine 30 MG/ML VIAL IVP SCH ×2 (00:14→05:00)
[2018-05-12] MEDS: HYDROcodone/Acetaminophen 10/325 mg Tablet PO PRN ×3 (00:16→09:32)
[2018-05-12 04:50] VITALS: BP 100/60; TEMP 98.5
[2018-05-12] MEDS: Sodium Chloride 0.9% 1,000 ML IV SCH (04:55)
[2018-05-12] MEDS: Multivitamin W/ Minerals 1 TAB PO SCH (09:32)
[2018-05-12] MEDS: Venlafaxine HCl XR 75 MG CAP PO SCH (09:32)
[2018-05-12] MEDS: Senokot S 8.6-50 MG TAB PO SCH (09:32)
[2018-05-12] MEDS: Bupropion 150 MG XL TAB PO SCH (09:32)
[2018-05-12] MEDS: Ferrous Gluconate 324 MG TAB PO SCH (09:32)
[2018-05-12] MEDS: Fish Oil 1,000 MG CAP PO SCH (09:32)
[2018-05-12] MEDS: Aspirin 81 mg Enteric Coated Tablet PO SCH (09:32)
--- NOTE | 2018-05-12 23:31 | PDOC.PN ---
- Subjective Encounter Start Date: 05/12/18 Encounter Start Time: 08:45 Patient seen and examined for med mngt. No new complaints. No overnight events - Objective MAR Reviewed: Yes Vital Signs & Weight: Weight Admit Weight 190 lb Weight 190 lb I&O: 05/11/18 05/12/18 05/13/18 06:59 06:59 06:59 Intake Total 3170.5 3530.5 Output Total 925 2550 Balance 2245.5 980.5 Result Diagrams: 05/11/18 05:48 Phys Exam - Physical Examination Constitutional: NAD Musculoskeletal: no edema Neurological: non-focal, moves all 4 limbs Psychiatric: A&O x 3 Dx/Plan - Plan DVT proph w/SCDs 1. HLD 2. Anxiety/Depression - mild - stable 3. CKD 2 4. Obesity BMI 34.8 5. PCN allergy 6. BILL on CPAP PLAN: Cont current meds as below Review of Systems - Review of Systems Respiratory: negative: Cough, Dry, Shortness of Breath, Hemoptysis, SOB with Excertion, Pleuritic Pain, Sputum, Wheezing Cardiovascular: negative: chest pain, palpitations, orthopnea, paroxysmal nocturnal dyspnea, edema, light headedness, other - Medications/Allergies Allergies/Adverse Reactions: Allergies Allergy/AdvReac Type Severity Reaction Status Date / Time Penicillins Allergy Rash Verified 05/06/18 12:47
== END 2018-05-12 14:06 | disposition home or self-care (01) | DRG 470 ==
LOC: SDC 07:15 → SJJU 11:52
PROVIDERS: ADMIT Orthopaedic Surgery; ATTEND Orthopaedic Surgery
PROC: 0SRD0J9 Replacement of Left Knee Joint with Synthetic Substitute, Cemented, Open Approach (ICD-10-PCS; principal; 2018-05-10)
DX: M17.12 Unilateral primary osteoarthritis, left knee (principal); Q78.8 Other specified osteochondrodysplasias; F42.9 Obsessive-compulsive disorder, unspecified; E78.5 Hyperlipidemia, unspecified; N18.2 Chronic kidney disease, stage 2 (mild); F41.9 Anxiety disorder, unspecified; G51.0 Bell's palsy; F32.9 Major depressive disorder, single episode, unspecified; E66.9 Obesity, unspecified; G47.33 Obstructive sleep apnea (adult) (pediatric); Z96.651 Presence of right artificial knee joint; Z85.41 Personal history of malignant neoplasm of cervix uteri; Z90.710 Acquired absence of both cervix and uterus; Z88.0 Allergy status to penicillin; Z68.34 Body mass index [BMI] 34.0-34.9, adult
CPT/HCPCS: 36415; 85027; C1713; C1776; J1100; J1885; J1956; J2250; J2405; J2704; J2795; J3010; J3370; J7050

== ENCOUNTER 2018-05-19 22:36 | Observation (INO) | payer MEDICARE, BC ==
[2018-05-19 23:52] LABS: #Basophils 0.1 thou/uL (0.0-0.2); #Eosinphils 0.3 thou/uL (0.0-0.7); #Lymphocytes 1.7 thou/uL (1.20-3.40); #Monocytes 1.2 thou/uL (0.11-0.59); #Neutrophils 5.7 thou/uL (1.40-6.50); %Basophils 0.8 % (0.0-1.0); %Eosinophils 3.1 % (0.0-10.0); %Monocytes 13.2 % (0.0-10.0); %Neutrophils 63.9 % (42.0-75.0); Mean Corpuscular Hemoglobin 30.9 pg (27.0-31.0); Mean Corpuscular Volume 93.6 fL (78.0-98.0); Mean Platelet Volume 6.6 fL (7.4-10.4); Platelet Count 368 thou/uL (130-400); RBC Distribution Width 12.9 % (11.5-14.5); Red Blood Cell (RBC) Count 3.57 mill/uL (4.20-5.40); White Blood Cell (WBC) Count 8.9 thou/uL (4.8-10.8)
[2018-05-20 00:11] LABS: ALT (SGPT) 19 U/L (8-55); AST (SGOT) 19 U/L (5-34); Albumin 3.6 g/dL (3.4-4.8); Alkaline Phosphatase 101 U/L (40-150); Anion Gap 13 mmol/L (10-20); BUN (Urea Nitrogen) 25 mg/dL (9.8-20.1); Bilirubin, Total 0.2 mg/dL (0.2-1.2); Calc. Creatinine Clearance 0 mL/min (70-130); Calcium 9.4 mg/dL (7.8-10.44); Carbon Dioxide 28 mmol/L (23-31); Chloride 103 mmol/L (98-107); Estimated GFR-MDRD 82; Globulin 2.8 g/dL (2.4-3.5); Glucose 118 mg/dL (80-115); Potassium 4.3 mmol/L (3.5-5.1); Protein, Total 6.4 g/dL (6.0-8.3); Sodium 140 mmol/L (136-145)
[2018-05-20] MEDS ORDERED: Sodium Chloride 0.9% 1,000 ML IV SCH (03:30)
[2018-05-20 03:46] VITALS: BMI 38.9
[2018-05-20] MEDS: HYDROcodone/Acetaminophen 10/325 mg Tablet PO PRN ×2 (06:21→10:36)
[2018-05-20 07:30] VITALS: TEMP 98.1
--- NOTE | 2018-05-20 07:30 | RAD ---
4 views left knee: 05/20/2018 COMPARISON: 05/10/2018 HISTORY: Swelling and pain FINDINGS: 05/10/2018 examination demonstrated recent postoperative change associated with left total kn ee arthroplasty. On today's examination the tibial and femoral components appear unremarkable, with n o evidence for hardware failure. No acute fracture or dislocation. Probable small knee joint effusion . Varicosities are suspected within the subcutaneous fat medially. Nonspecific soft tissue swelling is seen. IMPRESSION: Soft tissue swelling. No acute fracture or dislocation.
--- NOTE | 2018-05-20 07:32 | ULT ---
PRELIMINARY REPORT/[facility]/EMERGENCY AFTER HOURS PROCEDURE: EXAM: US Duplex Left Lower Extremity Veins, Limited EXAM DATE/TIME: 05/19/2018 11:50 PM CLINICAL HISTORY: 67 years old, female; Pain and signs and symptoms; Edema, localized; Lower extremity, left; Other: Lt knee; Prior surgery; Surgery date: 3-7 days post-operative; Surgery type: Lt knee replacement on 05/10/18; Patient HX: Lle pain/edema TECHNIQUE: Imaging protocol: Real-time Duplex ultrasound of the Left Lower Extremity with 2-D powell scale, color Doppler flow and spectral waveform analysis. Limited exam focused on the left lower extremity veins. COMPARISON: No relevant prior studies available. FINDINGS: Left deep veins: Unremarkable. The common femoral, femoral, proximal profunda femoral and popliteal veins are patent without thrombus. Normal Doppler waveforms. Normal compressibility and/or augmentation response. Left superficial veins: Unremarkable. Saphenofemoral junction is patent without thrombus. Soft tissues: Mild subcutaneous edema. IMPRESSION: No evidence of deep vein thrombosis. Thank you for allowing us to participate in the care of your patient. Dictated and Authenticated by: Mejia Piper MD 05/20/2018 1:05 AM Central Time ([place] & [place]) FINAL REPORT US Venous Doppler Lt Unilat History: [Edema. Pain. Recent knee replacement.] Comparison: None. Findings: Real-time grayscale, color, and spectral analysis of the left lower extremity venous system was performed. The common femoral, femoral, proximal portion is greater saphenous and deep femoral veins as well as the popliteal and posterior tibial veins were interrogated. Impression: Findings and impression are concordant with the preliminary report. Transcribed Date/Time: 05/20/2018 7:54 AM
[2018-05-20] MEDS ORDERED: tiZANidine HCl 4 MG TAB PO PRN ×2 (09:28→09:33)
[2018-05-20 11:15] VITALS: BP 97/64
--- NOTE | 2018-05-20 14:25 | SS ---
DATE OF ADMISSION: 05/20/2018 DATE OF DISCHARGE: 05/20/2018 PRIMARY CARE PHYSICIAN: . CHIEF COMPLAINT: Left lower leg pain and swelling. HISTORY OF PRESENTING ILLNESS: Ms. Ramirez is a pleasant 67-year-old female with past medical history of osteopoikilosis, cervical cancer in remission, dyslipidemia, depression, and Rivas palsy, who presented to the ER with above-mentioned complaint. History is mainly obtained by the patient herself and electronic medical records have been reviewed. Case has been discussed with Gurjit Morgan, Orthopedics PA over the phone. Ms. Ramirez was admitted under Orthopedic Services on 05/06/2018 for complaints of worsening left knee degenerative arthritis. She underwent left total knee replacement successfully at [place] on 05/10/2018 and was sent home. Course was uncomplicated and she was seen by [facility] in consultation with Orthopedics as primary. She was discharged safely. She came back to the emergency room last night for complaints of left lower leg pain. She reported that this has been going on for the last couple of days. This was not associated with any fever, numbness, or tingling in the left leg. She has not been having any fever, malaise, loss of appetite, or any other constitutional symptoms either. On presentation to the emergency room, she was hemodynamically stable and underwent general evaluation and according to the ER physician, she was found to have some edema of the left lower leg with +1 pitting and swelling of the left knee with some warmth. She had lower extremity Doppler ultrasound ordered and knee x-ray ordered, and she was admitted to Medicine Service with a presumptive diagnosis of possible postop infection. She received vancomycin in the emergency room. Since her presentation to the floor: She has been evaluated by Orthopedics and Mr. Cagle has called me this morning after the evaluation. Her vascular ultrasound of the left leg is negative for DVT, and her left knee x-ray only shows some soft tissue edema. According to Orthopedics evaluation, her knee looks in fairly good condition without any evidence of septic arthritis or postop infection. She does have history of osteopoikilosis and it was noticed that her postop course is little bit with slow recovery and this was experienced at the time of her prior right knee replacement surgery as well. I have seen and examined Ms. Ramirez at bedside, and at this time, the plan is to discharge her home after some FRANCISCA hose was placed in by Orthopedics. No further intervention is recommended by Orthopedics. They have cleared the patient for discharge. I have discussed the discharge plan with the patient and she verbalizes understanding and feels very good. She has been warned about monitoring signs and symptoms to suggest infection and to come back to the ER if she needs to. PAST MEDICAL HISTORY: 1. Osteopoikilosis. 2. History of cervical cancer, in remission. 3. Dyslipidemia. 4. Anxiety and depression. PAST SURGICAL HISTORY: 1. Right knee replacement. 2. Hysterectomy. 3. Left knee replacement 1 week ago. ALLERGIES: PENICILLIN. FAMILY HISTORY: No significant family history of premature coronary artery disease or stroke. SOCIAL HISTORY: She is and lives with her . No drug, tobacco, or alcohol abuse. CODE STATUS: Full code discussed with the patient. HOME MEDICATIONS: 1. Tizanidine p.r.n. 2. Zocor 1 tablet daily. 3. Estradiol 2 tablets as needed. 4. Bupropion 150 mg daily. 5. Aspirin 81 mg p.o. b.i.d. 6. Effexor 225 mg in the morning. 7. Multivitamin daily. REVIEW OF SYSTEMS: A 14-point review of systems is done and is negative except for those mentioned in the history and physical. LABORATORY AND DIAGNOSTIC DATA: CBC is unremarkable. ESR is 81. CRP is 5.09. Serum chemistries, unremarkable. Knee x-ray by my review shows some soft tissue edema without any discernible abscess or fracture dislocation. Lower extremity Doppler ultrasound is negative for DVT in the left leg. PHYSICAL EXAMINATION: VITAL SIGNS: Most recent temperature 98.1, pulse of 73, respirations 18, saturating 94% on room air, blood pressure 97/64. GENERAL: No acute distress. Lying comfortably in bed. Awake, alert, and oriented x3. HEENT: Mucous membrane is moist and pink. No oropharyngeal exudate or erythema. Head is normocephalic and atraumatic. Pupils are equal and reactive to light and accommodation. Extraocular movement intact. NECK: Supple without any lymphadenopathy, JVD, or bruit. CHEST: Clear to auscultation without any wheezing, rales, or rhonchi. HEART: Rate and rhythm are regular without any murmurs, rubs, or gallops. ABDOMEN: Soft, nontender, nondistended with positive bowel sounds. EXTREMITIES: Free of any cyanosis, clubbing, or edema. The left lower extremity is wrapped with Reid bandage, which has not been opened up. Orthopedics has evaluated the patient and they have not found any evidence of infection or cellulitis or septic arthritis. NEUROLOGICAL: Nonfocal. PSYCHIATRIC: Normal affect. IMPRESSION AND PLAN: The patient is being cleared for discharge from Orthopedic standpoint. There is no evidence to suggest postop infection of the left knee. She is hemodynamically stable. Discharge plan discussed with the patient, who verbalized understanding. Job ID: [id number]
[2018-05-20] MEDS ORDERED: Aspirin 81 mg Enteric Coated Tablet PO SCH (21:00)
[2018-05-20] MEDS ORDERED: Atorvastatin Calcium 10 MG TAB PO SCH (21:00)
[2018-05-20] MEDS ORDERED: Simvastatin 20 MG TAB PO SCH (21:00)
[2018-05-20] MEDS ORDERED: Non-Formulary Item 1 EACH (Cholecalciferol (Vitamin D3) [Vitamin D3] 1,000 UNIT) PO SCH (21:00)
[2018-05-21] MEDS ORDERED: Venlafaxine HCl XR 75 MG CAP PO SCH (09:00)
[2018-05-21] MEDS ORDERED: Multivit, Therapeutic 1 TAB PO SCH (09:00)
[2018-05-21] MEDS ORDERED: Bupropion 150 MG XL TAB PO SCH (09:00)
[2018-05-21] MEDS ORDERED: VENLAFAXINE HCL 225 MG PO SCH (09:00)
[2018-05-21] MEDS ORDERED: Non-Formulary Item 1 EACH (Multivitamin [Multi-Vitamin Daily] 1 TABLET) PO SCH (09:00)
== END 2018-05-20 14:50 | disposition home or self-care (01) ==
LOC: ERS 22:36 → SURG A 05-20 01:24
PROVIDERS: ADMIT Family Medicine; ATTEND Family Medicine
DX: M79.662 Pain in left lower leg (principal); R60.0 Localized edema; E78.5 Hyperlipidemia, unspecified; F32.9 Major depressive disorder, single episode, unspecified; Q78.8 Other specified osteochondrodysplasias; F41.8 Other specified anxiety disorders; Z85.41 Personal history of malignant neoplasm of cervix uteri; Z88.0 Allergy status to penicillin; Z96.652 Presence of left artificial knee joint; Z79.899 Other long term (current) drug therapy; Z79.82 Long term (current) use of aspirin
CPT/HCPCS: 73564; 80053; 85025; 85652; 86140; 87040 ×2; 93971; 96361; 96365; 99285; G0378 ×2; 36415; J3370

== ENCOUNTER 2022-09-15 12:07 | Outpatient (CLI) | payer MEDICARE, BC | END 2022-09-15 12:08 | disposition home or self-care (01) | LOC: BICMAMMO 12:07 | PROVIDERS: ATTEND Family Medicine | DX: Z12.31 Encounter for screening mammogram for malignant neoplasm of breast (principal) | CPT/HCPCS: 77063; 77067 ==

== ENCOUNTER 2023-11-09 16:19 | Emergency (ER) | payer MEDICARE | END 2023-11-09 16:51 | disposition home or self-care (01) | LOC: ERS 16:19 | DX: W19.XXXD Unspecified fall, subsequent encounter (principal) ==

== ENCOUNTER 2024-10-12 11:09 | Outpatient (CLI) | payer MEDICARE | END 2024-10-12 11:10 | disposition home or self-care (01) | LOC: BICMAMMO 11:09 | PROVIDERS: ATTEND Internal Medicine | DX: Z12.31 Encounter for screening mammogram for malignant neoplasm of breast (principal); Z80.3 Family history of malignant neoplasm of breast; Z85.41 Personal history of malignant neoplasm of cervix uteri | CPT/HCPCS: 77063; 77067 ==